=== PATIENT | female | born 1950 | race Asian ===

== ENCOUNTER 2018-11-06 07:32 | Day surgery (SDC) | payer OTHER, BC ==
[2018-10-29 15:32] VITALS: BMI 24.0
[2018-11-06] MEDS ORDERED: PROPOFOL 20 ML ONE ×3 (09:30)
[2018-11-06] MEDS ORDERED: LIDOCAINE HCL/PF 2% SDV 5ML VIAL ONE (09:30)
[2018-11-06 10:04] VITALS: TEMP 97.9
[2018-11-06 10:20] VITALS: BP 140/76; PULSE 80
--- NOTE | 2018-11-11 17:28 | PATH ---
Surgical Pathology Report Patient Name: [facility]. Rec. #: [id number] /Age/Gender: 1950 (Age: 68) / F Account: [id number] Location: [facility] Taken: 11/06/2018 Received: 11/10/2018 Reported: 11/11/2018 Physicians: Jonah Bruce M.D. Specimen(s) Received A: BX DUODENUM B: BX ANTRUM C: BX BODY Clinical History Screening Postoperative diagnosis: Hiatal hernia, gastritis Final Diagnosis A. DUODENUM, BIOPSY: DUODENAL MUCOSA WITH MILD ACUTE AND CHRONIC DUODENITIS. B. STOMACH, ANTRUM, BIOPSY: GASTRIC ANTRAL MUCOSA WITH MILD CHRONIC GASTRITIS. IMMUNOHISTOCHEMICAL STAIN FOR H. PYLORI IS NEGATIVE. C. STOMACH, BODY, BIOPSY: GASTRIC BODY MUCOSA WITH MILD CHRONIC GASTRITIS. IMMUNOHISTOCHEMICAL STAIN FOR H. PYLORI IS NEGATIVE. Electronically Signed Alisha Blanca M.D. Gross Description A. Received in formalin, labeled "biopsy at duodenum" are 3 lafleur, irregular portions of soft tissue ranging from 0.4-0.5 cm. in greatest dimension. The specimens are submitted in toto in one cassette. B. Received in formalin, labeled "biopsy at antrum" are 2 lafleur, irregular portions of soft tissue measuring 0.4 and 0.5 cm. in greatest dimension. The specimens are submitted in toto in one cassette. C. Received in formalin, labeled "biopsy of gastric body" are 2 lafleur, irregular portions of soft tissue averaging 0.4 cm. in greatest dimension. The specimens are submitted in toto in one cassette. 11/10/2018 [facility]11/10/2018
== END 2018-11-06 10:29 | disposition home or self-care (01) ==
LOC: FASU-ENDO 07:32
PROVIDERS: ATTEND Internal Medicine Gastroenterology
PROC: 0DB68ZX Excision of Stomach, Via Natural or Artificial Opening Endoscopic, Diagnostic (ICD-10-PCS; 2018-11-06)
PROC: 0DB98ZX Excision of Duodenum, Via Natural or Artificial Opening Endoscopic, Diagnostic (ICD-10-PCS; principal; 2018-11-06 08:30)
DX: K29.80 Duodenitis without bleeding (principal); K29.50 Unspecified chronic gastritis without bleeding; K44.9 Diaphragmatic hernia without obstruction or gangrene; R12 Heartburn; Z85.3 Personal history of malignant neoplasm of breast
CPT/HCPCS: 88305-TC; 88342-TC